=== PATIENT | female | born 1955 | race Caucasian/White ===

== ENCOUNTER 2016-11-13 06:56 | Day surgery (SDC) | payer MEDICARE, BC ==
[2016-11-08 11:09] VITALS: BMI 36.8
[~2016-11-13 06:56] MED LIST: LACTATED RINGERS 1,000 ML IV SCH; LIDOCAINE 1% 20 ML VIAL (10MG/ML) FOR IV START INTRADERMA PRN
[2016-11-13 07:11] VITALS: TEMP 97.7
[2016-11-13 07:17] LABS: Glucose,Whole Blood 133 mg/dL (75-99)
[2016-11-13] MEDS ORDERED: LIDOCAINE 1% INJ 10MG/ML (20 ML MDV) ONE (07:43)
[2016-11-13] MEDS ORDERED: PROPOFOL 10 MG/ML 20 ML VIAL IV ONE (07:43)
--- NOTE | 2016-11-13 07:48 | P.GSHP ---
History of Present Illness H&P Date: 11/13/16 Chief Complaint: Screening colonoscopy This is a 61-year-old female referred from Dr. gonzalez. Patient presents today for screening colonoscopy. She denies a significant GI complaints. - Constitutional Constitutional: Reports as per HPI Past Medical History Past Medical History: Diabetes Mellitus, Hyperlipidemia, Hypertension History of Any Multi-Drug Resistant Organisms: None Reported Past Surgical History: Hysterectomy, Tonsillectomy Past Anesthesia/Blood Transfusion Reactions: Motion Sickness Past Psychological History: Anxiety, Depression Smoking Status: Current every day smoker Past Alcohol Use History: None Reported Additional Past Alcohol Use History / Comment(s): SMOKES 1PPD FOR PAST 30 YRS Past Drug Use History: None Reported - Past Family History Mother Family Medical History: Cancer Father Family Medical History: Cancer Medications and Allergies Home Medications Medication Instructions Recorded Confirmed Type Atorvastatin [Lipitor] 20 mg PO HS 11/08/16 11/13/16 History Lisdexamfetamine Dimesylate 10 mg PO DAILY 11/08/16 11/13/16 History [Vyvanse] Lisinopril [Zestril] 20 mg PO DAILY 11/08/16 11/13/16 History Sertraline [Zoloft] 50 mg PO DAILY 11/08/16 11/13/16 History amLODIPine [Norvasc] 10 mg PO DAILY 11/08/16 11/13/16 History clonazePAM [KlonoPIN] 1 mg PO HS PRN 11/08/16 11/13/16 History metFORMIN HCL [Glucophage] 500 mg PO BID 11/08/16 11/13/16 History Allergies Allergy/AdvReac Type Severity Reaction Status Date / Time Sulfa (Sulfonamide AdvReac Severe JOINT PAIN Verified 11/08/16 11:03 Antibiotics) sulfamethoxazole AdvReac Severe JOINT PAIN Verified 11/08/16 11:03 [From Bactrim] trimethoprim [From Bactrim] AdvReac Severe JOINT PAIN Verified 11/08/16 11:03 Surgical - Exam Vital Signs Temp Pulse Resp BP Pulse Ox 97.7 F 87 14 137/80 96 11/13/16 07:10 11/13/16 07:10 11/13/16 07:10 11/13/16 07:10 11/13/16 07:10 - General well developed, no distress - Eyes PERRL - ENT normal pinna - Neck no masses - Respiratory normal expansion - Cardiovascular Rhythm: regular - Abdomen Abdomen: soft, non tender Results - Labs Abnormal Lab Results - Last 24 Hours (Table) 11/13/16 Range/Units 07:13 POC Glucose (mg/dL) 133 H (75-99) mg/dL Assessment and Plan Plan: We'll perform screening colonoscopy.
--- NOTE | 2016-11-13 08:03 | P.OP ---
Date of Procedure: 11/13/16 Preoperative Diagnosis: Screening colonoscopy Postoperative Diagnosis: Normal colon Procedure(s) Performed: Colonoscopy Anesthesia: MAC Surgeon: Jonathan Lipscomb Pathology: none sent Condition: stable Disposition: PACU Description of Procedure: PROCEDURE: The patient was placed on the endoscopy table in the lateral position. Digital rectal examination was performed which revealed no abnormalities. . Flexible colonoscope was then placed in the patient's anus and passed throughout the entire colon. The ileocecal valve was visualized. The cecum, ascending, transverse, descending and sigmoid colon were normal. The rectum was normal as well. There were no masses, polyps or diverticula noted in the entire colon. SUMMARY OF FINDINGS: Normal colonoscopy.
[2016-11-13 08:05] VITALS: RESP 16
[2016-11-13 08:17] VITALS: PULSE 76
[2016-11-13 08:25] VITALS: BP 118/68
[2016-11-13 08:25] LABS: Glucose,Whole Blood 120 mg/dL (75-99)
== END 2016-11-13 08:38 | disposition home or self-care (01) ==
LOC: ORWHC2ENDO 06:56
PROVIDERS: ATTEND Surgery
DX: Z12.11 Encounter for screening for malignant neoplasm of colon (principal); E11.9 Type 2 diabetes mellitus without complications; E78.5 Hyperlipidemia, unspecified; F32.9 Major depressive disorder, single episode, unspecified; I10 Essential (primary) hypertension; F17.200 Nicotine dependence, unspecified, uncomplicated; Z79.84 Long term (current) use of oral hypoglycemic drugs; Z79.899 Other long term (current) drug therapy; Z88.2 Allergy status to sulfonamides
CPT/HCPCS: J2001; J2704; G0121